=== PATIENT | male | born 1955 | race Hispanic/Latino ===

== ENCOUNTER 2020-09-26 08:33 | Emergency (ER) | payer OTHER ==
[2020-09-26] MEDS ORDERED: predniSONE 20 MG TAB ONE (09:21)
== END 2020-09-26 09:31 | disposition home or self-care (01) ==
LOC: NAV ERS 08:33
DX: M54.32 Sciatica, left side (principal); I10 Essential (primary) hypertension; Z79.899 Other long term (current) drug therapy
CPT/HCPCS: 99283; J7512

== ENCOUNTER 2020-10-03 09:13 | Outpatient (CLI) | payer OTHER | END 2020-10-03 09:14 | disposition home or self-care (01) | LOC: NAV RAD 09:13 | PROVIDERS: ATTEND Nurse Practitioner Family | DX: M25.552 Pain in left hip (principal); M16.12 Unilateral primary osteoarthritis, left hip ==

== ENCOUNTER 2020-10-10 11:18 | Emergency (ER) | payer OTHER ==
[2020-10-10] MEDS ORDERED: methylPREDNISolone Sod Succ/PF 125 MG/2 ML VIAL ONE (12:09)
== END 2020-10-10 12:30 | disposition home or self-care (01) ==
LOC: NAV ERS 11:18
DX: M54.32 Sciatica, left side (principal); I10 Essential (primary) hypertension
CPT/HCPCS: 96372; 99283; J2930

== ENCOUNTER 2020-10-21 12:09 | Emergency (ER) | payer OTHER ==
[2020-10-21] MEDS ORDERED: methylPREDNISolone Acetate 40 mg/ml Vial ONE (12:54)
== END 2020-10-21 13:15 | disposition home or self-care (01) ==
LOC: NAV ERS 12:09
DX: T78.40XA Allergy, unspecified, initial encounter (principal); I10 Essential (primary) hypertension; Z79.899 Other long term (current) drug therapy
CPT/HCPCS: 96372; 99283; J2920